=== PATIENT | male | born 1960 | race Caucasian/White ===

== ENCOUNTER 2021-11-27 14:49 | Inpatient (IN) | payer MEDICARE, MEDICAID ==
[~2021-11-27 14:49] MED LIST: MAG HYDROX/AL HYDROX/SIMETH 30 ML CUP PO PRN; MAGNESIUM HYDROXIDE 2,400 MG/10 ML CUP PO PRN
[2021-11-27] MEDS: DIVALPROEX 500 MG TABLET.DR PO SCH ×2 (15:06→21:02)
[2021-11-27] MEDS: GABAPENTIN 300 MG CAP PO SCH ×3 (15:06→21:01)
[2021-11-27] MEDS: haloperidoL 5 MG TAB PO SCH ×2 (15:07→21:00)
--- NOTE | 2021-11-27 18:14 | P.HPMEDMHU ---
History of Present Illness H&P Date: 11/27/21 Patient is a 61-year-old male who is currently house was in the mental health unit. He was transferred here from [facility]. He currently is alert and oriented 3. However he cannot focus on the conversation. He has echolalia, flight of ideas, and experiences grandiose ideas. I'm unable to obtain an appropriate review of systems or history at this point in time. Patient seen and examined at bedside. He does deny any chest pain, shortness breath, nausea. He then goes on to tell me how he was at Dr. and a psychiatrist and describes People's ailments. He also talks about thyroid and heart disease but that denies he has these. He does not smoke diabetes and denies he has t hese. Unable to obtain a full review of systems due to mental health. Vital signs reviewed General: nontoxic, no distress, appears at stated age, disheveled, malodorous Derm: warm, dry Head: atraumatic, normocephalic, symmetric Eyes: EOMI, no lid lag, anicteric sclera, pupils equal round reactive to light ENT: Nose and ears atraumatic, no thrush, no pharyngeal erythema Neck: No thyromegaly, no cervical lymphadenopathy, trachea midline, supple Mouth: no lip lesion, mucus membranes moist Cardiovascular: S1S2 reg, no murmur, positive posterior tibial pulse bilateral, no edema, capillary refill less than 2 seconds Lungs: clear to auscultation bilateral, no rhonchi, no rales, no wheeze, no accessory muscle use Abdominal: soft, nontender to palpation, no guarding, no appreciable organomegaly, normal bowel sounds Ext: no gross muscle atrophy, muscle strength muscle strength 5 out of 5 in all 4 extremities, no contractures Neuro: CN II-XII grossly intact, light touch intact all 4 extremities, finger to nose within normal limits, Psych: Alert, oriented 3, inability to concentrate, echolalia perseveration, ideas of grandiosity Assessment/Plan: Nicotine dependency Cocaine use Alcohol dependency - Advised cessation -We'll start thiamine and folic acid -We will leave alcohol withdrawal protocol up to psychiatry. Psychosis -Your psych management External medication reconciliation reviewed. It is difficult to determine if patient may have a seizure disorder as he takes gabapentin and Depakote at baseline. However these may be due to his mental health disorder and alcohol dependency. Thank you for allowing us to participate in the care of this pleasant patient. Do not hesitate to contact us with questions. Someone can be reached from the [facility] hospitalist group all hours of the day at [phone] or via [employer] Meet[employer]. Past Medical History Past Medical History: No Reported History Past Surgical History: Tonsillectomy Additional Past Surgical History / Comment(s): root canal Smoking Status: Current every day smoker Past Alcohol Use History: Heavy Past Drug Use History: Cocaine - Past Family History Father Family Medical History: Unable to Obtain Medications and Allergies Home Medications Medication Instructions Recorded Confirmed Type Acetaminophen Tab [Tylenol] 650 mg PO Q4HR PRN 11/27/21 11/27/21 History Benztropine Mesylate [Cogentin] 1 mg PO TID 11/27/21 11/27/21 History Divalproex Sodium 1,000 mg PO HS 11/27/21 11/27/21 History Divalproex Sodium 500 mg PO QAM 11/27/21 11/27/21 History Gabapentin 300 mg PO TID 11/27/21 11/27/21 History haloperidoL [Haloperidol] 5 mg PO BID 11/27/21 11/27/21 History traZODone HCL [Desyrel] 50 mg PO HS 11/27/21 11/27/21 History Allergies Allergy/AdvReac Type Severity Reaction Status Date / Time fluphenazine [From Prolixin] Allergy Unknown Verified 11/27/21 01:24 levothyroxine Allergy Unknown Verified 11/27/21 01:24 risperidone [From Risperdal] Allergy Unknown Verified 11/27/21 01:24 sertraline [From Zoloft] Allergy Unknown Verified 11/27/21 01:24 Physical Exam Osteopathic Statement: *. No significant issues noted on an osteopathic structural exam other than those noted in the History and Physical/Consult. Vitals: Vital Signs Temp Pulse Resp BP Pulse Ox 11/27/21 15:28 97.9 F 80 16 137/75 97 Intake and Output 11/27/21 11/27/21 11/27/21 06:59 14:59 22:59 Other: Weight 81 kg Cranial Nerve Examination - Cranial Nerves Cranial Nerve II- Optic: Intact Cranial Nerve III- Oculomotor: Intact Cranial Nerve IV- Trochlear: Intact Cranial Nerve V- Trigeminal: Intact Cranial Nerve - Abducens: Intact Cranial Nerve VII- Facial: Intact Cranial Nerve VIII- Auditory: Intact Cranial Nerve IX- Glossopharyngeal: Intact Cranial Nerve X- Vagus: Intact Cranial Nerve XI- Accessory: Intact Cranial Nerve XII- Hypoglossal: Intact
[2021-11-27] MEDS: traZODone HCL 50 MG TAB PO SCH (21:00)
[2021-11-27] MEDS: LORazepam 2 MG/ML INJ IM PRN (23:53)
[2021-11-27] MEDS: HALOPERIDOL LACTATE 5 MG/ML 1 ML VIAL IM PRN (23:54)
[2021-11-28] MEDS: FOLIC ACID 1 MG TAB PO SCH (09:31)
[2021-11-28] MEDS: THIAMINE 100 MG TAB PO SCH (09:31)
[2021-11-28] MEDS: haloperidoL 5 MG TAB PO SCH ×2 (09:31→22:13)
[2021-11-28] MEDS: GABAPENTIN 300 MG CAP PO SCH ×3 (09:31→22:14)
[2021-11-28] MEDS: DIVALPROEX 500 MG TABLET.DR PO SCH ×2 (09:31→22:13)
--- NOTE | 2021-11-28 14:08 | P.HP ---
Psychiatric H&P - . H&P Date: 11/28/21 History & Physical: Allergies Allergy/AdvReac Type Severity Reaction Status Date / Time fluphenazine From Prolixin Allergy Unknown Verified 11/27/21 01:24 levothyroxine Allergy Unknown Verified 11/27/21 01:24 risperidone From Risperdal Allergy Unknown Verified 11/27/21 01:24 sertraline From Zoloft Allergy Unknown Verified 11/27/21 01:24 Vital Signs Temp 97.9 F 11/27/21 15:28 Pulse 80 11/27/21 15:28 Resp 16 11/27/21 15:28 BP 137/75 11/27/21 15:28 Pulse Ox 97 11/27/21 15:28 FiO2 11/28/21 13:51 IDENTIFYING DATA: Patient is a 61 yo male, lives in residential [place], sister is pat. HPI: Patient presented to the hospital on petition and certificate. Patient was admitted involunatrily. He was a transfer from [facility]. He apparently hasa history of chronic and perisstent mental illness. He was seen today and agreeable to speak with technical publications writer. He was illogical had loose associations. He was also tangential and delusional; about his family and beleives that "they all want me locked up. He spoke about the problems of his sister as pat. He appears to be ditressed today. He has poor insight and judgment. He claims that he wants back his jenniferanship. He admitts to med non compliance for quite some time. denies any depression or anxiety. He was minimizing his symtpoms. Petition states that. Patient denies any suicidal or homicidal ideations intent or plan. At this time patient denies any auditory or visual hallucinations. Patient denies any flight of ideas racing thoughts and increased in goal directed behavior. Patient admits to using cigarettes only no other recreational drugs. PAST PSYCHIATRIC HISTORY: Patient states that he feels he does not have a psychiatric illness. She was previously on Haldol and Depakote. He claims that he has been psychiatrically admitted several times in the past. Patient denies any psychiatric outpatient follow-up. Patient denies any history of suicide attempts in the past. PMH:as per medicine H and P ALLERGIES: as per EMR CHEMICAL DEPENDENCY HISTORY: as per HPI FAMILY PSYCHIATRIC/SUBSTANCE USE HISTORY: unsure SOCIAL HISTORY: Patient was born and raised in [place]. high school diploma. His sister is his gaurdian. He claims that he living in a half way house. He is denying any legal history at this time. Currently unmarried and unemployed. MENTAL STATUS EXAM: General Appearance: Patient appears to be tall, disheveled, stated age is alert, difficult to redirect and rambles. Patient appears to have poor hygiene and grooming. Behavior: Patient is seated without any agitated behavior. Speech: Patient's speech is hyperverbal. Mood/Affect: Patient reports their mood is depressed, affect is congruent and constricted. Suicidality/Homicidality: Patient denies having any homicidal ideation intent o r plan. Denies any suicidal ideations intent or plan Perceptions: Patient denies any visual hallucinations and denies any auditory hallucinations Though content/process: Hyperverbal, tangential/circumstantial. Flight of ideas. Memory and concentration: AOX3, grossly intact for the purposes of this session. Can spell "WORLD" backwards Judgment and insight: poor STRENGTHS/WEAKNESSES: strength is that patient is resilient. Weakness is that patient has poor judgment and is impulsive INTELLECT: average IMPRESSIONS: Schizoaffective disorder, bipolar type Nicotine dependence PLAN: -Patient is admitted under involuntary status to [facility] for stabilization of psychiatric symptoms and safety. Patient has not signed adult voluntary form and medication consent and is placed in patient's chart. A second certification was completed and along with petition will be filed for court. -Medications : Will start patient on Haldol 5 mg twice a day, trazodone 50 mg daily at bedtime, Depakote 500 mg plus 1000 mg daily and at nighttime. -Ativan and Haldol PRN for agitation/aggression -Patient was informed of the risks, benefits and side effects of the medication and patient verbally consented to taking the medications. Patient signed med consent form and was placed in chart. -Internal Medicine consult to perform medical evaluation and physical. -NRT - nicotine patch -SW on board for discharge planning. Encourage patient to participate in groups to work on coping skills. Will await deferral and court date.
[2021-11-28] MEDS: traZODone HCL 50 MG TAB PO SCH (22:13)
[2021-11-29 06:46] VITALS: RESP 18
[2021-11-29] MEDS: THIAMINE 100 MG TAB PO SCH (09:36)
[2021-11-29] MEDS: DIVALPROEX 500 MG TABLET.DR PO SCH ×2 (09:36→21:13)
[2021-11-29] MEDS: FOLIC ACID 1 MG TAB PO SCH (09:36)
[2021-11-29] MEDS: GABAPENTIN 300 MG CAP PO SCH ×3 (09:36→21:14)
[2021-11-29] MEDS: haloperidoL 5 MG TAB PO SCH ×2 (09:36→21:13)
[2021-11-29] MEDS: LORazepam 1 MG TAB PO PRN (11:37)
[2021-11-29] MEDS: haloperidoL 5 MG TAB PO PRN (11:37)
--- NOTE | 2021-11-29 14:01 | P.PN ---
Progress Note - Text Progress Note Date: 11/29/21 Interval History: Patient was seen wandering the hallways and was directable and agreeable to tello valencia with selling underwriter in the office. Patient was more directable today however continues to ramble is tangential and hyperverbal. He just started taking medications last night. He has loose associations and was bizarre and some of the statements that he was making. Difficult to redirect. He apparently almost got into a fight with another patient earlier. He claims that he did not sleep well last night. Continues to have fairly poor insight and judgment. At this time patient denies any suicidal or homical ideations, intent or plan. Patient denies any visual hallucinations. He claims that he is hearing voices however is not able to specify what they're saying to him. Patient denies any side effects from the medications and has been compliant with meds. Mental Status Exam: General Appearance: Patient appears to be tall, disheveled, stated age is alert, difficult to redirect and rambles. Patient appears to have poor hygiene and grooming. Behavior: Patient is seated without any agitated behavior. Difficult to redirect. Speech: Patient's speech is hyperverbal. Mood/Affect: Patient reports their mood is "the same", affect is congruent and constricted. Suicidality/Homicidality: Patient denies having any homicidal ideation intent or plan. Denies any suicidal ideations intent or plan Perceptions: Patient denies any visual hallucinations and admits to auditory hallucinations however is not able to specify what they are. Though content/process: Hyperverbal, tangential/circumstantial. Flight of ideas, improving mildly Memory and concentration: AOX3, grossly intact for the purposes of this session. Judgment and insight: poor IMPRESSIONS: Schizoaffective disorder, bipolar type Nicotine dependence Plan: -Patient continues to meet criteria for inpatient psychiatric admission for symptom stabilization and safety. Patient has not signed adult voluntary form and medication consent and was placed in patient's chart. -Medications: Haldol 5 mg twice a day for psychosis, increase over the weekend as tolerated. Continue Depakote 500 mg every morning +1000 mg daily at bedtime for mood stabilization. Increase trazodone to 150 mg daily at bedtime for sleep. -When necessary Ativan and Haldol for agitation/aggression. -NRT - nicotine patch -SW on board for discharge planning. Encouraged the patient to participate in milieu. Currently awaiting deferral with workers compensation attorney and court date.
[2021-11-29] MEDS: LORazepam 2 MG/ML INJ IM PRN (17:27)
[2021-11-29] MEDS: HALOPERIDOL LACTATE 5 MG/ML 1 ML VIAL IM PRN (17:28)
[2021-11-29] MEDS: traZODone HCL 50 MG TAB PO SCH (21:13)
[2021-11-30] MEDS: haloperidoL 5 MG TAB PO SCH ×2 (09:09→20:06)
[2021-11-30] MEDS: GABAPENTIN 300 MG CAP PO SCH ×3 (09:09→20:06)
[2021-11-30] MEDS: THIAMINE 100 MG TAB PO SCH (09:09)
[2021-11-30] MEDS: DIVALPROEX 500 MG TABLET.DR PO SCH ×2 (09:09→20:06)
[2021-11-30] MEDS: FOLIC ACID 1 MG TAB PO SCH (09:09)
--- NOTE | 2021-11-30 17:00 | P.PN ---
Progress Note - Text Progress Note Date: 11/30/21 Subjective: Patient was seen today as a cross coverage for Dr. Oliveros. The patient was evaluated, chart reviewed, case discussed with the treatment team. The patient presented was very bizarre speech, incoherent, and not able to provide any history because of his psychotic symptoms. The patient was very bizarre with his his speech, with cole salad and nonsensical. As per nursing staff, the patient showed impulsive behavior yesterday that he was unpredictable and to some degree intrusive with annoying behaviors to other patients. Reportedly, the patient was sexually preoccupied. Upon psychiatric evaluation today, patient couldn't provide any information, and was laughing inappropriately. Objective: Vitals has been reviewed. Mental status examination; General Appearance: Patient appears to be tall, disheveled, stated age is alert, difficult to redirect and rambles. Patient appears to have poor hygiene and grooming. Behavior: Patient is seated without any agitated behavior. Difficult to redirect. Speech: Patient's speech is hyper verbal. Mood: Patient reports their mood is "the same" Affect: Increased intensity and incongruent Suicidal/homicidal ideation: Patient denies having any homicidal ideation intent or plan. Denies any suicidal ideation intent or plan Perceptions: Patient denies any visual hallucinations and admits to auditory hallucinations however is not reliable historian. Though content/process: Hyper verbal, tangential/circumstantial. Flight of ideas Memory and concentration: Unable to assess because the patient was not cooperative with evaluation Judgment and insight: poor Assessment: Schizo-affective disorder, bipolar type Nicotine dependence Plan: Continue inpatient level of care due to patient needs further monitoring and stabilization of psychotic and mood instability symptoms Precautions: Continue 15 minutes check for safety. Consider medical consultation if any acute medical issues arise. Provide the patient individual, group therapy, substance use disorder counseling to give better insight and learn coping skills. Medications: Increase Haldol 5 mg daily and 10 mg at bedtime for psychosis Continue Depakote 500 mg every morning +1000 mg daily at bedtime for mood stabilization. Continue trazodone 150 mg daily at bedtime for sleep. When necessary Ativan and Haldol for agitation/aggression. NRT - nicotine patch Continue non-psychiatric medications for medical conditions as recommended by the medical team. Discharge patient to OUTPATIENT services upon a stabilization
[2021-11-30] MEDS: traZODone HCL 50 MG TAB PO SCH (20:06)
[2021-12-01] MEDS: THIAMINE 100 MG TAB PO SCH (08:31)
[2021-12-01] MEDS: DIVALPROEX 500 MG TABLET.DR PO SCH ×2 (08:31→21:31)
[2021-12-01] MEDS: FOLIC ACID 1 MG TAB PO SCH (08:32)
[2021-12-01] MEDS: haloperidoL 5 MG TAB PO SCH ×3 (08:32→21:31)
[2021-12-01] MEDS: GABAPENTIN 300 MG CAP PO SCH ×3 (08:32→21:31)
[2021-12-01] MEDS: haloperidoL 5 MG TAB PO PRN (13:36)
[2021-12-01] MEDS: LORazepam 1 MG TAB PO PRN (13:36)
--- NOTE | 2021-12-01 16:02 | P.PN ---
Progress Note - Text Progress Note Date: 12/01/21 Subjective: Patient was seen today as a cross coverage for Dr. Oliveros. The patient was evaluated, chart reviewed, case discussed with the treatment team. The patient continued to present with bizarre speech, disorganized thoughts and not responding to redirection. Patient still have incoherent speech and he couldn't clearly answer questions. No reports of behavioral problems as per nursing staff and the patient didn't show threatening behaviors toward other peers, and was not intrusive. No report of sleep or appetite problem. Patient continued to take his psychiatric medications. He attended some groups today, and was seen coloring during activity group. Objective: Vitals has been reviewed. Mental status examination; General Appearance: Patient appears to be tall, disheveled, stated age is alert, difficult to redirect and rambles. Patient appears to have poor hygiene and grooming. Behavior: Patient is seated without any agitated behavior. Difficult to redirect. Speech: Patient's speech is hyper verbal. Mood: Patient reports their mood is "the same" Affect: Increased intensity and incongruent Suicidal/homicidal ideation: Patient denies having any homicidal ideation intent or plan. Denies any suicidal ideation intent or plan Perceptions: Patient denies any visual hallucinations and admits to auditory hallucinations however is not reliable historian. Though content/process: Hyper verbal, tangential/circumstantial. Flight of ideas Memory and concentration: Unable to assess because the patient was not cooperative with evaluation Judgment and insight: poor Assessment: Schizo-affective disorder, bipolar type Nicotine dependence Plan: Continue inpatient level of care due to patient needs further monitoring and stabilization of psychotic and mood instability symptoms Precautions: Continue 15 minutes check for safety. Consider medical consultation if any acute medical issues arise. Provide the patient individual, group therapy, substance use disorder counseling to give better insight and learn coping skills. Medications: Continue Haldol 5 mg daily and 10 mg at bedtime for psychosis. The dose was increased yesterday Continue Depakote 500 mg every morning +1000 mg daily at bedtime for mood stabilization. Continue trazodone 150 mg daily at bedtime for sleep. When necessary Ativan and Haldol for agitation/aggression. Continue non-psychiatric medications for medical conditions as recommended by the medical team. Discharge patient to OUTPATIENT services upon a stabilization
[2021-12-01] MEDS: traZODone HCL 50 MG TAB PO SCH (21:31)
[2021-12-02] MEDS: DIVALPROEX 500 MG TABLET.DR PO SCH ×2 (09:21→20:53)
[2021-12-02] MEDS: THIAMINE 100 MG TAB PO SCH (09:21)
[2021-12-02] MEDS: FOLIC ACID 1 MG TAB PO SCH (09:21)
[2021-12-02] MEDS: haloperidoL 5 MG TAB PO SCH ×2 (09:22→20:53)
[2021-12-02] MEDS: GABAPENTIN 300 MG CAP PO SCH ×3 (09:22→20:54)
--- NOTE | 2021-12-02 13:12 | P.PN ---
Progress Note - Text Progress Note Date: 12/02/21 Interval History: Patient was seen in his room today and agreeable speech regular. Patient appe ars to be mildly more directable however continues to mention inappropriate comments and bizarre statements during conversation. He continues to have fairly poor insight and judgment. He was not responding to internal stimuli today. Not endorsing any delusions or grandiosity. He states that he is sleeping fairly at nighttime. He did not mention whether he is going to groups or not. Denies any depression or anxiety today. At this time patient denies any suicidal or homical ideations, intent or plan. Patient denies any auditory, visual hallucinations and denies any paranoia or delusions. Patient denies any side effects from the medications and has been compliant with meds. Mental Status Exam: General Appearance: Patient appears to be tall, disheveled, stated age is alert, difficult to redirect and rambles. Patient appears to have poor hygiene and grooming. Behavior: Patient is seated without any agitated behavior. Speech: Patient's speech is less hyperverbal. Mood/Affect: Patient reports their mood is "fine", affect is congruent and constricted. Suicidality/Homicidality: Patient denies having any homicidal ideation intent or plan. Denies any suicidal ideations intent or plan Perceptions: Patient denies any visual hallucinations and denies any auditory hallucinations Though content/process: Hyperverbal, tangential/circumstantial. Bizarre comments. Memory and concentration: AOX3, grossly intact for the purposes of this session Judgment and insight: Chronically poor IMPRESSIONS: Schizoaffective disorder, bipolar type Nicotine dependence Plan: -Patient continues to meet criteria for inpatient psychiatric admission for symptom stabilization and safety. Patient has not signed adult voluntary form and medication consent and was placed in patient's chart. -Medications: Increase Haldol to 10 mg twice a day for psychosis. Trazodone 150 mg daily at bedtime for sleep, but code 500 mg daily +1000 mg daily at bedtime for mood stabilization. -When necessary Ativan and Haldol for agitation/aggression. -NRT - nicotine patch -SW on board for discharge planning. Encouraged the patient to participate in milieu. Patient did not defer and will await court hearing date on 12/05.
[2021-12-02] MEDS: traZODone HCL 50 MG TAB PO SCH (20:53)
[2021-12-03] MEDS: THIAMINE 100 MG TAB PO SCH (10:00)
[2021-12-03] MEDS: FOLIC ACID 1 MG TAB PO SCH (10:00)
[2021-12-03] MEDS: GABAPENTIN 300 MG CAP PO SCH ×3 (10:00→22:05)
[2021-12-03] MEDS: haloperidoL 5 MG TAB PO SCH ×2 (10:00→22:05)
[2021-12-03] MEDS: DIVALPROEX 500 MG TABLET.DR PO SCH ×2 (10:00→22:05)
--- NOTE | 2021-12-03 11:06 | P.PN ---
Progress Note - Text Progress Note Date: 12/03/21 Interval History: Patient was seen in his room today and was approached by [employer]. Patient appea red to be speaking to himself and looking at the window. Patient appeared to have a disheveled appearance today. He turned the ad copy writer and asked "what the fuck do you want?" In a threatening manner and states that "I don't want to talk to you get out of my room". He proceeded to walk toward the ad copy writer in a threatening manner. He refused to answer any other questions and was bizarre and rambling. He was responding to internal stimuli. Mental Status Exam: General Appearance: Patient appears to be tall, disheveled, stated age is alert, difficult to redirect and rambles. Patient appears to have poor hygiene and grooming. Behavior: Patient is standing, near his window, responding to internal stimuli. Speech: Patient's speech is hyperverbal. Mood/Affect: Unable to assess Suicidality/Homicidality: Unable to assess Perceptions: Unable to assess Though content/process: Hyperverbal, tangential/circumstantial. Bizarre comments. Demanding. Memory and concentration: Unable to assess Judgment and insight: Chronically poor IMPRESSIONS: Schizoaffective disorder, bipolar type Nicotine dependence Plan: -Patient continues to meet criteria for inpatient psychiatric admission for symptom stabilization and safety. Patient has not signed adult voluntary form and medication consent and was placed in patient's chart. -Medications: Haldol to 10 mg twice a day for psychosis. Trazodone 150 mg daily at bedtime for sleep, depakote 500 mg daily +1000 mg daily at bedtime for mood stabilization. -When necessary Ativan and Haldol for agitation/aggression. -NRT - nicotine patch -SW on board for discharge planning. Encouraged the patient to participate in milieu. Patient did not defer and will await court hearing date on 12/05.
[2021-12-03] MEDS: traZODone HCL 50 MG TAB PO SCH (22:05)
[2021-12-04] MEDS: THIAMINE 100 MG TAB PO SCH (07:59)
[2021-12-04] MEDS: DIVALPROEX 500 MG TABLET.DR PO SCH ×2 (07:59→19:52)
[2021-12-04] MEDS: haloperidoL 5 MG TAB PO SCH ×2 (07:59→19:52)
[2021-12-04] MEDS: FOLIC ACID 1 MG TAB PO SCH (07:59)
[2021-12-04] MEDS: GABAPENTIN 300 MG CAP PO SCH ×3 (07:59→19:52)
--- NOTE | 2021-12-04 11:47 | P.PN ---
Progress Note - Text Progress Note Date: 12/04/21 Interval History: Patient was seen in his room today responding to internal stimuli. Patient was conversing to himself and laughing several times to himself as well. She was agreeable to speak to the inspector automatic typewriter in the hallway today and appeared to be somewhat irritable and aggressive. He was also hostile during the interaction and was difficult to redirect. He made some bizarre comments and continues to respond to internal stimuli. He denied any overnight complaints and ended the interview early. He got upset when inspector automatic typewriter asked him about suicidal and homicidal ideations. He is currently denying them at this time. Denying any auditory or visual hallucinations. Mental Status Exam: General Appearance: Patient appears to be tall, disheveled, stated age is alert, difficult to redirect and rambles. Patient appears to have poor hygiene and grooming. Behavior: Patient is standing, near his window, responding to internal stimuli. Speech: Patient's speech is hyperverbal. Laughing inappropriately. Mood/Affect: Unable to assess Suicidality/Homicidality: Unable to assess Perceptions: Unable to assess Though content/process: Hyperverbal, tangential/circumstantial. Bizarre comments. Demanding. Hostile. Memory and concentration: Unable to assess Judgment and insight: Chronically poor IMPRESSIONS: Schizoaffective disorder, bipolar type Nicotine dependence Plan: -Patient continues to meet criteria for inpatient psychiatric admission for symptom stabilization and safety. Patient has not signed adult voluntary form and medication consent and was placed in patient's chart. -Medications: increase Haldol to 15 mg twice a day for psychosis. Trazodone 150 mg daily at bedtime for sleep, depakote 500 mg daily +1000 mg daily at bedtime for mood stabilization. deapkote level tomorrow morning. -When necessary Ativan and Haldol for agitation/aggression. -NRT - nicotine patch -SW on board for discharge planning. Encouraged the patient to participate in milieu. Patient did not defer and will await court hearing date on 12/05.
[2021-12-04] MEDS: ACETAMINOPHEN TAB 325 MG TAB PO PRN (15:53)
[2021-12-04] MEDS: traZODone HCL 50 MG TAB PO SCH (19:52)
[2021-12-05] MEDS: ACETAMINOPHEN TAB 325 MG TAB PO PRN (04:39)
[2021-12-05] MEDS: THIAMINE 100 MG TAB PO SCH (08:18)
[2021-12-05] MEDS: FOLIC ACID 1 MG TAB PO SCH (08:18)
[2021-12-05] MEDS: GABAPENTIN 300 MG CAP PO SCH ×3 (08:18→19:41)
[2021-12-05] MEDS: DIVALPROEX 500 MG TABLET.DR PO SCH ×2 (08:18→19:41)
[2021-12-05] MEDS: haloperidoL 5 MG TAB PO SCH ×2 (08:18→19:41)
--- NOTE | 2021-12-05 18:36 | P.PN ---
Progress Note - Text Progress Note Date: 12/05/21 Interval History: Patient was seen in his room with a nurse present due to his history of sexually inappropriate behaviors. He was uncooperative with assessment, remained laying in bed and facing away from the treatment team. He declined to answer any questions and stated "I'm not doing squat." He was observed earlier pacing the hallways, disheveled, talking to himself, responding to internal stimuli. He has been noncompliant with his medications. Evaluation was ended to avoid agitating patient. Mental Status Exam: General Appearance: Patient appears disheveled. Orientation: Alert, unable to assess orientation due to lack of cooperation. Behavior: Patient is laying in bed facing away from treatment team, poor eye contact. Speech: Patient's speech is fluent and nonpressured. Mood/Affect: Mood is irritable, affect is congruent (seen earlier walking the hallways) Suicidality/Homicidality: unable to assess orientation due to lack of cooperation. Perceptions: Appears to be attending to internal stimuli. Though content/process: unable to assess orientation due to lack of cooperation. Memory and concentration: unable to assess orientation due to lack of cooperation. Judgment and insight: poor Assessment Schizoaffective disorder, bipolar type Tobacco use disorder Plan: -Patient continues to meet criteria for inpatient psychiatric admission for symptom stabilization and safety. -Medications: Continue current medications, encourage compliance with medications and treatment. -When necessary Ativan and Haldol for agitation/aggression. -NRT - nicotine patch -SW on board for discharge planning. Encouraged the patient to participate in milieu. Court hearing scheduled for 12/05.
[2021-12-05] MEDS: traZODone HCL 50 MG TAB PO SCH (19:41)
[2021-12-06] MEDS: DIVALPROEX 500 MG TABLET.DR PO SCH (08:52)
[2021-12-06] MEDS: FOLIC ACID 1 MG TAB PO SCH (08:52)
[2021-12-06] MEDS: THIAMINE 100 MG TAB PO SCH (08:52)
[2021-12-06] MEDS: GABAPENTIN 300 MG CAP PO SCH ×3 (08:53→20:46)
[2021-12-06] MEDS: haloperidoL 5 MG TAB PO SCH (08:53)
[2021-12-06] MEDS: haloperidoL 5 MG TAB PO PRN (08:55)
--- NOTE | 2021-12-06 09:01 | P.PN ---
Progress Note - Text Progress Note Date: 12/06/21 Interval History: Patient was seen wandering the hallways today and was responding to internal s timuli. Patient was laughing and talking to himself. He was agreeable to speak to bid writer briefly however was inappropriate and bizarre. He asked bid writer a question "what's the gonzalez of chicken and eggs" and was fairly fixated on this question during the interaction. He did not answer questions appropriately and was equally redirected. He appeared to be somewhat irritable and impulsive. He claims that he does not want to take the medications any longer. State Inspector attempted to speak with patient about the court order however patient did not acknowledge it. He was unable to answer whether he is hearing voices or not. Mental Status Exam: General Appearance: Patient appears to be tall, disheveled, stated age is alert, difficult to redirect and rambles. Patient appears to have poor hygiene and grooming. Behavior: Patient is standing, near his window, responding to internal stimuli. Speech: Patient's speech is hyperverbal. Laughing inappropriately. Mood/Affect: Unable to assess Suicidality/Homicidality: Unable to assess Perceptions: Unable to assess Though content/process: Hyperverbal, tangential/circumstantial. Bizarre comments. Demanding. Memory and concentration: Unable to assess Judgment and insight: Chronically poor IMPRESSIONS: Schizoaffective disorder, bipolar type Nicotine dependence Plan: -Patient continues to meet criteria for inpatient psychiatric admission for symptom stabilization and safety. Patient has not signed adult voluntary form and medication consent and was placed in patient's chart. -Medications: Change Depakote by mouth 2 Depakene syrup 500 mg twice a day for mood stabilization. Switched Haldol to clozapine as patient was not improving on haloperidol.*Clozapine 25 mg twice a day for psychosis. Trazodone 150 mg daily at bedtime for sleep. Haldol IM as back up if patient refuses clozapine. -When necessary Ativan and Haldol for agitation/aggression. -NRT - nicotine patch -SW on board for discharge planning. Encouraged the patient to participate in milieu. Patient is court ordered since 12/05.
[2021-12-06 11:21] LABS: Basophils % (A) 1 %; Eosinophils # (A) 0.1 k/uL (0-0.7); Eosinophils % (A) 3 %; HCT 46.6 % (39.0-53.0); HGB 15.6 gm/dL (13.0-17.5); Lymphocytes # (A) 1.4 k/uL (1.0-4.8); Lymphocytes % (A) 30 %; MCH 31.5 pg (25.0-35.0); MCHC 33.4 g/dL (31.0-37.0); MCV 94.4 fL (80.0-100.0); Mean Platelet Volume 7.2; Monocytes # (A) 0.2 k/uL (0-1.0); Monocytes % (A) 5 %; Neutrophils # (A) 2.7 k/uL (1.3-7.7); Neutrophils % (A) 58 %; Platelet Count 256 k/uL (150-450); RBC 4.94 m/uL (4.30-5.90); RDW 12.8 % (11.5-15.5); WBC 4.7 k/uL (3.8-10.6)
[2021-12-06] MEDS: VALPROIC ACID ORAL SOLN 250 MG/5 ML CUP PO SCH ×2 (14:30→21:11)
[2021-12-06] MEDS: cloZAPine 25 MG TAB PO SCH ×2 (14:56→21:19)
[2021-12-06 15:21] VITALS: BMI 28.0
[2021-12-06] MEDS: traZODone HCL 50 MG TAB PO SCH (20:46)
[2021-12-07] MEDS: THIAMINE 100 MG TAB PO SCH (08:39)
[2021-12-07] MEDS: FOLIC ACID 1 MG TAB PO SCH (08:39)
[2021-12-07] MEDS: cloZAPine 25 MG TAB PO SCH ×2 (08:39→20:44)
[2021-12-07] MEDS: GABAPENTIN 300 MG CAP PO SCH ×3 (08:39→20:43)
[2021-12-07] MEDS: HALOPERIDOL LACTATE 5 MG/ML 1 ML VIAL IM PRN ×2 (08:45→20:50)
[2021-12-07] MEDS: LORazepam 2 MG/ML INJ IM PRN (08:46)
[2021-12-07] MEDS: VALPROIC ACID ORAL SOLN 250 MG/5 ML CUP PO SCH ×2 (10:32→20:44)
[2021-12-07] MEDS: traZODone HCL 50 MG TAB PO SCH (20:44)
--- NOTE | 2021-12-07 22:13 | P.PN ---
Progress Note - Text Progress Note Date: 12/07/21 Interval History: Interval History: Patient was seen in his room with a nurse present due to his history of sexually inappropriate behaviors. He was uncooperative with assessment again today, remained laying in bed and facing away from the treatment team. He declined to answer any questions, would mumble incoherently and passed gas. He was observed earlier pacing the hallways, disheveled, talking to himself, had straw wrappers in his nose while walking in the hallways responding to internal stimuli. He has been noncompliant with his medications, refused his Clozapine this evening and received Haldol 5 mg IM due to refusal of Clozapine since he is court ordered. Mental Status Exam: General Appearance: Patient appears disheveled. Orientation: Alert, unable to assess orientation due to lack of cooperation. Behavior: Patient is laying in bed facing away from treatment team, poor eye contact. Speech: Patient's speech is fluent and nonpressured, rambling.. Mood/Affect: Mood is irritable, affect is congruent Suicidality/Homicidality: unable to assess orientation due to lack of cooperation. Perceptions: Appears to be attending to internal stimuli. Though content/process: unable to assess orientation due to lack of cooperation. Memory and concentration: unable to assess orientation due to lack of cooperation. Judgment and insight: poor Assessment Schizoaffective disorder, bipolar type Tobacco use disorder Plan: -Patient continues to meet criteria for inpatient psychiatric admission for symptom stabilization and safety. -Medications: Continue Depakene syrup 500 mg twice a day for mood stabilization. Increase Clozapine to 50 mg twice a day for psychosis. Haldol IM as back up if patient refuses Clozapine. Continue Trazodone 150 mg daily at bedtime for sleep. -When necessary Ativan and Haldol for agitation/aggression. -NRT - nicotine patch -SW on board for discharge planning. Encouraged the patient to participate in milieu. Patient is court ordered since 12/05.
[2021-12-08] MEDS: GABAPENTIN 300 MG CAP PO SCH ×3 (09:06→20:35)
[2021-12-08] MEDS: FOLIC ACID 1 MG TAB PO SCH (09:06)
[2021-12-08] MEDS: cloZAPine 25 MG TAB PO SCH ×2 (09:06→20:35)
[2021-12-08] MEDS: THIAMINE 100 MG TAB PO SCH (09:06)
[2021-12-08] MEDS: VALPROIC ACID ORAL SOLN 250 MG/5 ML CUP PO SCH ×2 (09:06→20:37)
[2021-12-08] MEDS: HALOPERIDOL LACTATE 5 MG/ML 1 ML VIAL IM PRN (09:08)
--- NOTE | 2021-12-08 16:19 | P.PN ---
Progress Note - Text Progress Note Date: 12/08/21 Interval History: Patient was seen in his room with a nurse present due to his history of sexually inappropriate behaviors. He was found cleaning his room this afternoon, was making his bed and throwing out some trash. He was uncooperative with assessment again today and gave us the silent treatment today. He declined to answer any questions, and walked around the room cleaning and ignored the questions asked. He has been noncompliant with his medications. He has been refusing his oral Clozapine; and yesterday and found cheeking his oral Clozapine and oral Neurontin, so he received IM Haldol for refusal of oral Clozapine yesterday and this morning since he is court ordered. He appears to be slightly improving with the IM Haldol injections. Mental Status Exam: General Appearance: Patient appears disheveled, dressed in hospital gown. Orientation: Alert, unable to assess orientation due to lack of cooperation. Behavior: Patient walking around his room and cleaning it, appears to intentionally ignore the treatment team, has poor eye contact. Speech: Patient does not speak to us on assessment today. Mood/Affect: Mood appears upset/annoyed, affect is congruent Suicidality/Homicidality: Unable to assess orientation due to lack of cooperation. Perceptions: Appears to be attending to internal stimuli. Though content/process: Unable to assess orientation due to lack of cooperation. Memory and concentration: Unable to assess orientation due to lack of coop eration. Judgment and insight: poor Assessment Schizoaffective disorder, bipolar type Tobacco use disorder Plan: -Patient continues to meet criteria for inpatient psychiatric admission for symptom stabilization and safety. -Medications: Continue Depakene syrup 500 mg twice a day for mood stabilization. Continue Clozapine 50 mg twice a day for psychosis. Haldol IM as back up if patient refuses Clozapine. Continue Trazodone 150 mg daily at bedtime for sleep. -When necessary Ativan and Haldol for agitation/aggression. -NRT - nicotine patch -SW on board for discharge planning. Encouraged the patient to participate in milieu. Patient is court ordered since 12/05.
[2021-12-08] MEDS: traZODone HCL 50 MG TAB PO SCH (20:35)
[2021-12-09] MEDS: FOLIC ACID 1 MG TAB PO SCH (08:34)
[2021-12-09] MEDS: VALPROIC ACID ORAL SOLN 250 MG/5 ML CUP PO SCH ×3 (08:35→21:44)
[2021-12-09] MEDS: THIAMINE 100 MG TAB PO SCH (08:35)
[2021-12-09] MEDS: GABAPENTIN 300 MG CAP PO SCH ×3 (08:43→21:37)
[2021-12-09] MEDS: cloZAPine 25 MG TAB PO SCH (10:03)
[2021-12-09] MEDS: HALOPERIDOL LACTATE 5 MG/ML 1 ML VIAL IM PRN ×3 (10:07→21:46)
--- NOTE | 2021-12-09 11:11 | P.PN ---
Progress Note - Text Progress Note Date: 12/09/21 Interval History: Patient was seen sitting in a group today and was agreeable to speak to typewriter assembler. Patient appears to be mildly more directable during conversation and mildly more clear in his thought process. He continues to focus on his medications and was asking typewriter assembler "why did you switched my meds". He appeared to be fairly upset that he is now on liquid medication and was asked by cheeking and patient got verbally aggressive with typewriter assembler. He continues to laugh inappropriately and make inappropriate comments. He is bizarre. Responding to internal stimuli. He claimed that he slept fairly last night. Denies any auditory or visual hallucinations today. Denies any suicidal or homicidal ideations intent or plan. Mental Status Exam: General Appearance: Patient appears to be tall, disheveled, stated age is alert, difficult to redirect and rambles. Patient appears to have poor hygiene and grooming. Behavior: Patient is standing, near his window, responding to internal stimuli. Speech: Patient's speech is hyperverbal. Laughing inappropriately. Mood/Affect: Unable to assess Suicidality/Homicidality: Unable to assess Perceptions: Unable to assess Though content/process: Hyperverbal, tangential/circumstantial. Bizarre comments. Demanding. Memory and concentration: Unable to assess Judgment and insight: Chronically poor IMPRESSIONS: Schizoaffective disorder, bipolar type Nicotine dependence Plan: -Patient continues to meet criteria for inpatient psychiatric admission for symptom stabilization and safety. Patient has not signed adult voluntary form and medication consent and was placed in patient's chart. -Medications: Depakene syrup 500 mg twice a day for mood stabilization. Switched from clozapine to Haldol liquid as patient was likely cheeking as he was caught doing this earlier. Start Haldol liquid 5 mg bid for psychosis. Trazodone 150 mg daily at bedtime for sleep. Haldol IM as back up if patient refuses po -When necessary Ativan and Haldol for agitation/aggression. -NRT - nicotine patch -SW on board for discharge planning. Encouraged the patient to participate in milieu. Patient is court ordered since 12/05.
[2021-12-09] MEDS: HALOPERIDOL ORAL SOLN 10 MG/5 ML CUP PO SCH ×3 (11:43→21:44)
[2021-12-09] MEDS: LORazepam 2 MG/ML INJ IM PRN (15:55)
[2021-12-09] MEDS: traZODone HCL 50 MG TAB PO SCH (21:37)
[2021-12-10] MEDS: ACETAMINOPHEN TAB 325 MG TAB PO PRN (06:20)
[2021-12-10] MEDS: HALOPERIDOL LACTATE 5 MG/ML 1 ML VIAL IM PRN ×2 (10:32→20:52)
[2021-12-10] MEDS: GABAPENTIN 300 MG CAP PO SCH ×4 (10:36→20:48)
[2021-12-10] MEDS: FOLIC ACID 1 MG TAB PO SCH (10:36)
[2021-12-10] MEDS: THIAMINE 100 MG TAB PO SCH (10:36)
[2021-12-10] MEDS: HALOPERIDOL ORAL SOLN 10 MG/5 ML CUP PO SCH ×3 (10:36→20:49)
[2021-12-10] MEDS: VALPROIC ACID ORAL SOLN 250 MG/5 ML CUP PO SCH ×3 (10:37→20:50)
--- NOTE | 2021-12-10 15:33 | P.PN ---
Progress Note - Text Progress Note Date: 12/10/21 Interval History: Patient was seen sitting on his bed today and was agreeable to speak to leader writer. Patient was somewhat irritable however be improving in terms of his affect and also his distractibility. He followed some commands today. He appeared to be mildly less bizarre today and was mildly less laughing inappropriately. He did not appear to be talking or responding to internal stimuli. He states that "I'm having a headache" and was requesting Excedrin. He continues to have very poor insight and judgment and has been refusing the liquid medication and receiving haloperidol injections. He became somewhat argumentative and visibly upset when leader writer began asking him about hallucinations. He is denying any auditory or visual hallucinations today. He claimed that he slept fairly last night. Denies any suicidal or homicidal ideations intent or plan. Mental Status Exam: General Appearance: Patient appears to be tall, disheveled, stated age is alert, difficult to redirect and rambles. Patient appears to have improving hygiene and grooming. Behavior: Patient is sitting on his bed, responding to internal stimuli, improving mildly. Speech: Patient's speech is hyperverbal. Laughing inappropriately. Mood/Affect: patient claims that his mood is "fine", affect is congruent and constricted. Suicidality/Homicidality: denies Perceptions: denies Though content/process: Hyperverbal, tangential/circumstantial. Bizarre comments. improing midlly Memory and concentration: Unable to assess Judgment and insight: Chronically poor, improvbing mildly IMPRESSIONS: Schizoaffective disorder, bipolar type Nicotine dependence Plan: -Patient continues to meet criteria for inpatient psychiatric admission for symptom stabilization and safety. Patient has not signed adult voluntary form and medication consent and was placed in patient's chart. -Medications: Depakene syrup 500 mg twice a day for mood stabilization. increase Haldol liquid 7.5 mg bid for psychosis. Trazodone 150 mg daily at bedtime for sleep. Haldol IM as back up if patient refuses po -When necessary Ativan and Haldol for agitation/aggression. -NRT - nicotine patch -SW on board for discharge planning. Encouraged the patient to participate in milieu. Patient is court ordered since 12/05.
[2021-12-10] MEDS: traZODone HCL 50 MG TAB PO SCH ×2 (20:20→20:49)
[2021-12-10] MEDS: LORazepam 2 MG/ML INJ IM PRN (20:52)
[2021-12-11 08:06] LABS: Basophils % (A) 1 %; Eosinophils # (A) 0.3 k/uL (0-0.7); Eosinophils % (A) 8 %; HCT 45.4 % (39.0-53.0); HGB 15.1 gm/dL (13.0-17.5); Lymphocytes # (A) 1.1 k/uL (1.0-4.8); Lymphocytes % (A) 29 %; MCH 30.7 pg (25.0-35.0); MCHC 33.3 g/dL (31.0-37.0); MCV 92.1 fL (80.0-100.0); Mean Platelet Volume 7.2; Monocytes # (A) 0.3 k/uL (0-1.0); Monocytes % (A) 7 %; Neutrophils % (A) 54 %; Platelet Count 209 k/uL (150-450); RBC 4.93 m/uL (4.30-5.90); RDW 12.1 % (11.5-15.5); WBC 3.8 k/uL (3.8-10.6)
[2021-12-11] MEDS: FOLIC ACID 1 MG TAB PO SCH (09:18)
[2021-12-11] MEDS: GABAPENTIN 300 MG CAP PO SCH ×4 (09:19→21:37)
[2021-12-11] MEDS: THIAMINE 100 MG TAB PO SCH (09:19)
[2021-12-11] MEDS: VALPROIC ACID ORAL SOLN 250 MG/5 ML CUP PO SCH ×3 (09:19→21:36)
[2021-12-11] MEDS: HALOPERIDOL ORAL SOLN 10 MG/5 ML CUP PO SCH ×3 (09:19→21:36)
[2021-12-11] MEDS: HALOPERIDOL LACTATE 5 MG/ML 1 ML VIAL IM PRN ×2 (09:33→20:44)
--- NOTE | 2021-12-11 11:48 | P.PN ---
Progress Note - Text Progress Note Date: 12/11/21 (\\) Interval History: Patient was seen laying on his bed this morning and was turned away from racebook writer. Patient was mumbling at times and states that he feels "tired". He appears to be not responding to internal stimuli today and was attending to interact with racebook writer and answer questions as best as he could. He continues to make some bizarre comments and states that he does not want to take the liquid medication and would rather take the shots. He is denying any depression or anxiety today. He did not answer any questions regarding hallucinations or with regards to his sleep. Denies any suicidal or homicidal ideations intent or plan. Patient was somewhat lethargic and did not want to speak to racebook writer. He received Haldol injection this morning. Mental Status Exam: General Appearance: Patient appears to be tall, disheveled, stated age is lethargic today, and cooperative. Patient appears to have improving hygiene and grooming. Behavior: Patient is laying on his bed, not responding to internal stimuli Speech: Patient's speech is improving, more fluent today. Mood/Affect: patient claims that his mood is "ok", affect is congruent and constricted. Suicidality/Homicidality: denies Perceptions: Unable to assess Though content/process: tangential/circumstantial. Bizarre comments. improving midlly Memory and concentration: Unable to assess Judgment and insight: Chronically poor, improving mildly IMPRESSIONS: Schizoaffective disorder, bipolar type Nicotine dependence Plan: -Patient continues to meet criteria for inpatient psychiatric admission for symptom stabilization and safety. Patient has not signed adult voluntary form and medication consent and was placed in patient's chart. -Medications: Depakene syrup 500 mg twice a day for mood stabilization. Haldol liquid 7.5 mg bid for psychosis. Trazodone 150 mg daily at bedtime for sleep. Haldol IM as back up if patient refuses po. Will give Haldol D 100 mg IM today. -When necessary Ativan and Haldol for agitation/aggression. -NRT - nicotine patch -SW on board for discharge planning. Encouraged the patient to participate in milieu. Patient is court ordered since 12/05.
[2021-12-11] MEDS ORDERED: HALOPERIDOL DECANOATE 100 MG/ML 1 ML VIAL IM ONE (14:00)
[2021-12-11] MEDS: traZODone HCL 50 MG TAB PO SCH ×2 (20:23→21:36)
[2021-12-11] MEDS: BENZTROPINE MESYLATE 1 MG TAB PO PRN (22:07)
[2021-12-12] MEDS: VALPROIC ACID ORAL SOLN 250 MG/5 ML CUP PO SCH ×2 (09:07→21:35)
[2021-12-12] MEDS: FOLIC ACID 1 MG TAB PO SCH (09:07)
[2021-12-12] MEDS: GABAPENTIN 300 MG CAP PO SCH ×3 (09:07→21:35)
[2021-12-12] MEDS: THIAMINE 100 MG TAB PO SCH (09:07)
[2021-12-12] MEDS: HALOPERIDOL ORAL SOLN 10 MG/5 ML CUP PO SCH ×2 (09:07→21:35)
[2021-12-12] MEDS: HALOPERIDOL LACTATE 5 MG/ML 1 ML VIAL IM PRN ×2 (09:11→21:12)
[2021-12-12] MEDS: BENZTROPINE MESYLATE 1 MG TAB PO PRN ×2 (09:19→21:12)
--- NOTE | 2021-12-12 13:18 | P.PN ---
Progress Note - Text Progress Note Date: 12/12/21 Interval History: Patient was seen laying on his bed this morning and was turned away from race and sports book writer. Patient was initially agreeable to speak to race and sports book writer however was mumbling answers. He appeared to be mildly more directable today. He claims that he is feeling "fine" and was not very responsive to race and sports book writer's questions. He rambles at times and was somewhat illogical. Not responding to internal stimuli today. He continues to be upset with race and sports book writer for starting him on medications and continues to receive injections. He received Haldol D yesterday. Denies any suicidal or homicidal ideations intent or plan. Patient was somewhat lethargic and did not want to speak to race and sports book writer and told race and sports book writer to "get the hell out of here". Mental Status Exam: General Appearance: Patient appears to be tall, disheveled, stated age is lethargic today, and cooperative. Patient appears to have improving hygiene and grooming Behavior: Patient is laying on his bed, not responding to internal stimuli Speech: Patient's speech is improving, more fluent today. Mood/Affect: patient claims that his mood is "ok", affect is congruent and constricted. Suicidality/Homicidality: denies Perceptions: Unable to assess Though content/process: tangential/circumstantial. Bizarre comments. improving midlly Memory and concentration: Unable to assess Judgment and insight: Chronically poor, improving mildly IMPRESSIONS: Schizoaffective disorder, bipolar type Nicotine dependence Plan: -Patient continues to meet criteria for inpatient psychiatric admission for symptom stabilization and safety. Patient has not signed adult voluntary form and medication consent and was placed in patient's chart. -Medications: Depakene syrup 500 mg twice a day for mood stabilization. Haldol liquid 7.5 mg bid for psychosis. Trazodone 150 mg daily at bedtime for sleep. Haldol IM as back up if patient refuses po. given Haldol D 100 mg IM on 12/11 and will be due for a second 100 mg IM dose tomorrow. -When necessary Ativan and Haldol for agitation/aggression. -NRT - nicotine patch -SW on board for discharge planning. Encouraged the patient to participate in milieu. Patient is court ordered since 12/05.
[2021-12-12] MEDS: ACETAMINOPHEN TAB 325 MG TAB PO PRN (18:29)
[2021-12-12] MEDS: traZODone HCL 50 MG TAB PO SCH (21:35)
[2021-12-13] MEDS: FOLIC ACID 1 MG TAB PO SCH (09:06)
[2021-12-13] MEDS: THIAMINE 100 MG TAB PO SCH (09:06)
[2021-12-13] MEDS: HALOPERIDOL ORAL SOLN 10 MG/5 ML CUP PO SCH ×2 (09:06→20:55)
[2021-12-13] MEDS: VALPROIC ACID ORAL SOLN 250 MG/5 ML CUP PO SCH ×2 (09:06→20:55)
[2021-12-13] MEDS: GABAPENTIN 300 MG CAP PO SCH ×3 (09:06→20:55)
[2021-12-13] MEDS: BENZTROPINE 2 MG/2 ML AMP IM PRN (09:10)
[2021-12-13] MEDS: HALOPERIDOL LACTATE 5 MG/ML 1 ML VIAL IM PRN ×2 (09:10→20:58)
--- NOTE | 2021-12-13 11:29 | P.PN ---
Progress Note - Text Progress Note Date: 12/13/21 Interval History: Patient was seen earlier sitting in on group and attending to participate. Prashant garza was later seen by contract technical writer wandering the hallways and was agreeable to speak to contract technical writer briefly. Patient appeared to be mumbling less and appeared to have mild improvement in his thought process. Continues to be tangential/circumstantial at times. He made some bizarre comments however this has been improving significantly. He is not responding to internal stimuli today. We spoke about possible discharge on Thursday. He has about his medications and like he needs injections. Patient will be due for Haldol D1 100 mg IM today. Denies any suicidal or homicidal ideations intent or plan. Patient is denying any auditory or visual hallucinations today. Denying any suicidal or homicidal ideations intent or plan. Mental Status Exam: General Appearance: Patient appears to be tall, disheveled, stated age is lethargic today, and cooperative. Patient appears to have improving hygiene and grooming Behavior: Patient is laying on his bed, not responding to internal stimuli Speech: Patient's speech is improving, more fluent today. Mood/Affect: patient claims that his mood is "ok", affect is congruent and constricted. Suicidality/Homicidality: denies Perceptions: Denies any hallucinations. Though content/process: tangential/circumstantial. Bizarre comments. improving midlly. Rambling. Memory and concentration: Unable to assess Judgment and insight: Chronically poor, improving mildly IMPRESSIONS: Schizoaffective disorder, bipolar type Nicotine dependence Plan: -Patient continues to meet criteria for inpatient psychiatric admission for symptom stabilization and safety. Patient has not signed adult voluntary form and medication consent and was placed in patient's chart. -Medications: Depakene syrup 500 mg twice a day for mood stabilization. Haldol liquid 5 mg bid for psychosis. Trazodone 150 mg daily at bedtime for sleep. Haldol IM as back up if patient refuses po. given Haldol D 100 mg IM on 12/11 and will be due for a second 100 mg IM dose today. Would recommend that patient receive 200 mg IM Haldol Dec [id number] upon discharge. -When necessary Ativan and Haldol for agitation/aggression. -NRT - nicotine patch -SW on board for discharge planning. Encouraged the patient to participate in milieu. Patient is court ordered since 12/05. Will aim for discharge back home thursday with [facility] and [facility] team follow up.
[2021-12-13] MEDS ORDERED: HALOPERIDOL DECANOATE 100 MG/ML 1 ML VIAL IM ONE (16:00)
[2021-12-13] MEDS: traZODone HCL 50 MG TAB PO SCH (20:55)
[2021-12-13] MEDS: BENZTROPINE MESYLATE 1 MG TAB PO PRN (20:58)
[2021-12-14] MEDS: VALPROIC ACID ORAL SOLN 250 MG/5 ML CUP PO SCH ×2 (08:29→20:56)
[2021-12-14] MEDS: THIAMINE 100 MG TAB PO SCH (08:29)
[2021-12-14] MEDS: FOLIC ACID 1 MG TAB PO SCH (08:29)
[2021-12-14] MEDS: HALOPERIDOL ORAL SOLN 10 MG/5 ML CUP PO SCH ×2 (08:29→20:56)
[2021-12-14] MEDS: GABAPENTIN 300 MG CAP PO SCH ×3 (08:29→20:56)
[2021-12-14] MEDS: BENZTROPINE 2 MG/2 ML AMP IM PRN (09:03)
[2021-12-14] MEDS: HALOPERIDOL LACTATE 5 MG/ML 1 ML VIAL IM PRN ×2 (09:03→20:55)
--- NOTE | 2021-12-14 11:09 | P.PN ---
Subjective Progress Note Date: 12/14/21 Principal diagnosis: IMPRESSIONS: Schizoaffective disorder, bipolar type Nicotine dependence Patient was seen earlier sitting in with few other patients and was cooperative and asked to come out for an interview Patient however has significant loose associations flight of ideas and circumstantiality and tangentiality Patient comes across as projective paranoid with inappropriate laughter Continues to be tangential/circumstantial at times. He made some bizarre comments He is responding to internal stimuli today. Patient was unable to concentrate or any questions about any auditory visual hallucinations but seems to be responding to them Insight and his problem is poor Mental Status Exam: General Appearance: Patient appears to be tall, disheveled, stated age is lethargic today, and cooperative. Behavior: Disorganized thought processes loud talk and appears to be preoccupied Speech: Pressured with circumstantiality and tangentiality and loose associations Mood/Affect: Euphoric Suicidality/Homicidality: denies Perceptions: Appears to be experiencing auditory and visual hallucinations Though content/process: tangential/circumstantial. . Rambling. Memory and concentration: Unable to assess Judgment and insight: Chronically poor, IMPRESSIONS: Schizoaffective disorder, bipolar type Nicotine dependence Plan: -Patient continues to meet criteria for inpatient psychiatric admission for symptom stabilization and safety. Patient has not signed adult voluntary form and medication consent and was placed in patient's chart. -Medications: Depakene syrup 500 mg twice a day for mood stabilization. Haldol liquid 5 mg bid for psychosis. Trazodone 150 mg daily at bedtime for sleep. Haldol IM as back up if patient refuses po. given Haldol D 100 mg IM on 12/11 and will be due for a second 100 mg IM dose today. Would recommend that patient receive 200 mg IM Haldol Dec [id number] upon discharge. -When necessary Ativan and Haldol for agitation/aggression. -NRT - nicotine patch -SW on board for discharge planning. Encouraged the patient to participate in milieu. Patient is court ordered since 12/05. Patrice Alexis M.D. 12/14/2021 Objective - Vital Signs Vital signs: Vital Signs Temp 98.9 F 12/14/21 06:59 Pulse 73 12/14/21 06:59 Resp 18 12/13/21 07:15 BP 106/55 12/14/21 06:59 Pulse Ox 96 12/14/21 06:59 FiO2 - Labs CBC & Chem 7: 12/11/21 07:15
[2021-12-14] MEDS: LORazepam 2 MG/ML INJ IM PRN (20:55)
[2021-12-14] MEDS: BENZTROPINE MESYLATE 1 MG TAB PO PRN (20:56)
[2021-12-14] MEDS: traZODone HCL 50 MG TAB PO SCH (20:56)
[2021-12-15] MEDS: ACETAMINOPHEN TAB 325 MG TAB PO PRN (05:53)
[2021-12-15] MEDS: FOLIC ACID 1 MG TAB PO SCH (09:14)
[2021-12-15] MEDS: GABAPENTIN 300 MG CAP PO SCH ×3 (09:14→22:03)
[2021-12-15] MEDS: BENZTROPINE MESYLATE 1 MG TAB PO PRN ×2 (09:15→22:03)
[2021-12-15] MEDS: THIAMINE 100 MG TAB PO SCH (09:15)
[2021-12-15] MEDS: HALOPERIDOL LACTATE 5 MG/ML 1 ML VIAL IM PRN ×2 (09:15→22:10)
[2021-12-15] MEDS: HALOPERIDOL ORAL SOLN 10 MG/5 ML CUP PO SCH ×2 (09:15→22:03)
[2021-12-15] MEDS: VALPROIC ACID ORAL SOLN 250 MG/5 ML CUP PO SCH ×2 (09:15→22:03)
--- NOTE | 2021-12-15 12:37 | P.PN ---
Subjective Progress Note Date: 12/15/21 Principal diagnosis: IMPRESSIONS: Schizoaffective disorder, bipolar type Nicotine dependence Patient was walking in the hallway talking to himself When approached patient Running away and kept Laughing He stated that 'just write down this 'and made some jibbering noises and walked away again Patient has significant loose associations flight of ideas and circumstantiality and tangentiality Patient comes across as projective paranoid with inappropriate laughter Continues to be tangential/circumstantial at times. He made some bizarre comments He is responding to internal stimuli Insight and his problem is poor Mental Status Exam: General Appearance: Patient appears to be tall, disheveled, stated age Behavior: Disorganized thought processes loud talk and appears to be preoccupied Speech: Pressured with circumstantiality and tangentiality and loose associati ons Mood/Affect: Euphoric Suicidality/Homicidality: Unable to assess but patient does exhibit any self abusive behavior Perceptions: Appears to be experiencing auditory and visual hallucinations Though content/process: tangential/circumstantial. . Rambling. Memory and concentration: Unable to assess Judgment and insight: Chronically poor, IMPRESSIONS: Schizoaffective disorder, bipolar type Nicotine dependence Plan: -Patient continues to meet criteria for inpatient psychiatric admission for symptom stabilization and safety. Patient has not signed adult voluntary form and medication consent and was placed in patient's chart. -Medications: Depakene syrup 500 mg twice a day for mood stabilization. Haldol liquid 5 mg bid for psychosis. Trazodone 150 mg daily at bedtime for sleep. Haldol IM as back up if patient refuses po. given Haldol D 100 mg IM on 12/11 and will be due for a second 100 mg IM dose today. Would recommend that patient receive 200 mg IM Haldol Dec [id number] upon discha rge. -When necessary Ativan and Haldol for agitation/aggression. -NRT - nicotine patch -SW on board for discharge planning. Encouraged the patient to participate in milieu. Patient is court ordered since 12/05. Patrice Alexis M.D. 12/15/2021 Objective - Vital Signs Vital signs: Vital Signs Temp 97.9 F 12/15/21 06:48 Pulse 76 12/15/21 06:48 Resp 18 12/15/21 06:48 BP 111/58 12/15/21 06:48 Pulse Ox 99 07/10/22 06:48 FiO2 Intake & Output 12/14/21 12/15/21 12/15/21 18:59 06:59 18:59 Weight 77 kg - Labs CBC & Chem 7: 12/11/21 07:15
[2021-12-15] MEDS: traZODone HCL 50 MG TAB PO SCH (22:02)
[2021-12-15] MEDS: haloperidoL 5 MG TAB PO PRN (22:17)
[2021-12-16] MEDS: FOLIC ACID 1 MG TAB PO SCH (08:54)
[2021-12-16] MEDS: haloperidoL 5 MG TAB PO PRN ×2 (08:54→20:10)
[2021-12-16] MEDS: GABAPENTIN 300 MG CAP PO SCH ×3 (08:54→20:43)
[2021-12-16] MEDS: THIAMINE 100 MG TAB PO SCH (08:54)
[2021-12-16] MEDS: VALPROIC ACID ORAL SOLN 250 MG/5 ML CUP PO SCH ×2 (08:56→20:43)
[2021-12-16] MEDS: HALOPERIDOL ORAL SOLN 10 MG/5 ML CUP PO SCH ×2 (08:56→20:43)
[2021-12-16] MEDS: ACETAMINOPHEN TAB 325 MG TAB PO PRN ×2 (15:17→20:10)
[2021-12-16] MEDS ORDERED: LORazepam 1 MG/0.5 ML VIAL IM PRN (18:45)
--- NOTE | 2021-12-16 19:00 | PN ---
PROGRESS NOTE DATE OF SERVICE: 12/16/2021 CHIEF COMPLAINT: The patient was admitted for delusions and hallucination. INTERVAL HISTORY: The patient continues to be significantly symptomatic with disorganized thoughts, behaviors and psychotic symptoms. He was out on the unit yesterday. He did attend some groups. He could show some contained behavior and thoughts for limited periods of time, though also he will show some disorganized thoughts and functioning. He was noted to sleep 5 hours last night. Today he has been up and overall doing the same. He attended 3 groups today. In general he is noted to be bright in his affect. He tends to be disorganized and garbled in his speech, and communication for the most part is not very productive. When I talked to the patient, it was difficult to be clear on much of what he was talking about. He would respond to questions, though it was difficult to follow his train of thought. He did not appear to voice any clear complaints or concerns. I was not able to get any information for the patient in regard to medication tolerance. MENTAL STATUS EXAM: The patient was quite restless. He would respond to questions, though mostly he would veer off and be quite rambling in his responses. It was difficult to follow his train of thought. His affect was intense, his mood elevated. It was difficult to assess whether he was distressed or not. He clearly was showing response to internal stimuli with a lot of self-talk, both in the session as well as when he was observed outside of the session. It was difficult to assess for any thoughts of harm. He appeared to be oriented to circumstances and surroundings. ASSESSMENT: I will continue the current diagnosis and treatment plan. I will continue psychotropic medications the same. The patient continues to show significant psychotic symptoms. I briefly reviewed some issues of his medications though kept the discussion limited, as he was not able to engage much in the conversation. We will focus on stabilization and discharge planning. MMODL / IJN: [id number] /
[2021-12-16] MEDS: traZODone HCL 50 MG TAB PO SCH (20:10)
[2021-12-17] MEDS: HALOPERIDOL ORAL SOLN 10 MG/5 ML CUP PO SCH (08:49)
[2021-12-17] MEDS: VALPROIC ACID ORAL SOLN 250 MG/5 ML CUP PO SCH (08:50)
[2021-12-17] MEDS: FOLIC ACID 1 MG TAB PO SCH (08:50)
[2021-12-17] MEDS: GABAPENTIN 300 MG CAP PO SCH ×3 (08:50→22:04)
[2021-12-17] MEDS: THIAMINE 100 MG TAB PO SCH (08:50)
[2021-12-17] MEDS: BENZTROPINE MESYLATE 1 MG TAB PO PRN (08:53)
[2021-12-17] MEDS: ACETAMINOPHEN TAB 325 MG TAB PO PRN (10:29)
--- NOTE | 2021-12-17 11:34 | P.PN ---
Progress Note - Text Progress Note Date: 12/17/21 Interval History: Patient was seen walking the hallways today and was approached by poem writer. Shakila webster was fairly focused on asking poem writer about obtaining "Excedrin" for his headaches. [employer] Manager attempted to offer other medications including Tylenol and ibuprofen however patient appeared to reject these. He was talking to himself and wandering the hallways and appears to be less impulsive today. She did not want to answer other questions and walked away from poem writer. Patient received Haldol D IM 100 mg IM on 12/11 and also 100 mg IM on 12/13. Mental Status Exam: General Appearance: Patient appears to be tall, wandering the hallways, less irritable today. Patient appears to have improving hygiene and grooming Behavior: Patient is wandering the hallways today, talking to himself. Speech: Patient's speech is improving, more fluent today. Mood/Affect: patient claims that his mood is "ok", affect is congruent and constricted. Suicidality/Homicidality: Unable to assess Perceptions: Unable to assess Though content/process: tangential/circumstantial. Bizarre comments. improving midlly. Rambling. Memory and concentration: Unable to assess Judgment and insight: Chronically poor IMPRESSIONS: Schizoaffective disorder, bipolar type Nicotine dependence Plan: -Patient continues to meet criteria for inpatient psychiatric admission for symptom stabilization and safety. Patient has not signed adult voluntary form and medication consent and was placed in patient's chart. -Medications: Discontinue Depakene as patient is not taking this. Discontinue Haldol liquid as patient received Haldol D1 100 mg IM on 12/11 and also 100 mg IM on 12/13. Will be due for next Haldol D injection on 12/27. Trazodone 150 mg daily at bedtime for sleep. Patient is not willing to take PO meds therefore we have exhausted therapeutic benefit and can continue patient only LAST once he is discharged. He is not a candidate for clozaril. -When necessary Ativan and Haldol for agitation/aggression. -NRT - nicotine patch -SW on board for discharge planning. Encouraged the patient to participate in milieu. Patient is court ordered since 12/05. Will aim for discharge back home tomorrow. SW to contact [facility] team to coordinate d/c tomorrow.
[2021-12-17] MEDS: traZODone HCL 50 MG TAB PO SCH (22:05)
[2021-12-18] MEDS: FOLIC ACID 1 MG TAB PO SCH (09:17)
[2021-12-18] MEDS: GABAPENTIN 300 MG CAP PO SCH ×3 (09:17→20:58)
[2021-12-18] MEDS: THIAMINE 100 MG TAB PO SCH (09:17)
--- NOTE | 2021-12-18 13:22 | P.PN ---
Progress Note - Text Progress Note Date: 12/18/21 Interval History: Patient was seen walking the hallways today and was approached by senior writer. Shakila webster appeared to be more interactive today with senior writer and attempted to answer more questions appropriately. He continues to ramble at times during conversation and was tangential. He needed to be redirected several times however was directable. He claims that he is doing "fine" and denying any depression or anxiety today. He spoke about discharge and how he is going to get back to his apartment. Patient received Haldol D IM 100 mg IM on 12/11 and also 100 mg IM on 12/13. He is denying any auditory or visual hallucinations denying any suicidal or homicidal ideations intent or plan. Mental Status Exam: General Appearance: Patient appears to be tall, wandering the hallways, less irritable today. Patient appears to have improving hygiene and grooming Behavior: Patient is wandering the hallways today, talking to himself. Speech: Patient's speech is improving, more fluent today. Mood/Affect: patient claims that his mood is "fine", affect is congruent and constricted. Suicidality/Homicidality: Denies Perceptions: Denies Though content/process: tangential/circumstantial. Bizarre comments. improving midlly. Rambling. Memory and concentration: Unable to assess Judgment and insight: Chronically poor IMPRESSIONS: Schizoaffective disorder, bipolar type Nicotine dependence Plan: -Patient continues to meet criteria for inpatient psychiatric admission for symptom stabilization and safety. Patient has not signed adult voluntary form and medication consent and was placed in patient's chart. -Medications: He received Haldol D 100 mg IM on 12/11 and also 100 mg IM on 12/13. Will be due for next Haldol D 200 mg IM injection on 12/27. increase Trazodone 200 mg daily at bedtime for sleep. Patient is not willing to take PO meds therefore we have exhausted therapeutic benefit and can continue patient only LAST once he is discharged. He is not a candidate for clozaril. -When necessary Ativan and Haldol for agitation/aggression. -NRT - nicotine patch -SW on board for discharge planning. Encouraged the patient to participate in milieu. Patient is court ordered since 12/05. Will aim for discharge back home tomorrow. SW contacted [place] [facility] team and also patient's guardian who claimed that patient is severely mentally ill at his baseline and they are okay with discharge however will need to arrange a ride back to his apartment.
[2021-12-18] MEDS: ACETAMINOPHEN TAB 325 MG TAB PO PRN ×2 (16:32→22:39)
[2021-12-18] MEDS: haloperidoL 5 MG TAB PO PRN (17:15)
[2021-12-18] MEDS: BENZTROPINE MESYLATE 1 MG TAB PO PRN (17:15)
[2021-12-18] MEDS ORDERED: traZODone HCL 100 MG TAB PO SCH (21:00)
[2021-12-19 06:30] VITALS: BP 118/62; PULSE 76; TEMP 97.7
[2021-12-19] MEDS: GABAPENTIN 300 MG CAP PO SCH ×2 (09:51→15:38)
[2021-12-19] MEDS: FOLIC ACID 1 MG TAB PO SCH (09:51)
[2021-12-19] MEDS: THIAMINE 100 MG TAB PO SCH (09:51)
--- NOTE | 2021-12-19 10:16 | P.PN ---
Progress Note - Text Progress Note Date: 12/19/21 Interval History: Patient was seen walking the hallways today and was approached by advertising writer. Shakila webster appeared to be more interactive today with advertising writer and attempted to answer more questions appropriately. He continues to ramble at times during conversation and was tangential. He needed to be redirected several times however was directable. He claims that he is doing "fine" and denying any depression or anxiety today. He spoke about discharge and how he is going to get back to his apartment. Patient received Haldol D IM 100 mg IM on 12/11 and also 100 mg IM on 12/13. He is denying any auditory or visual hallucinations denying any suicidal or homicidal ideations intent or plan. Mental Status Exam: General Appearance: Patient appears to be tall, wandering the hallways. Patient appears to have improving hygiene and grooming Behavior: Patient is wandering the hallways today, talking to himself, improving mildly Speech: Patient's speech is improving, more fluent today Mood/Affect: patient claims that his mood is "good doc", affect is congruent and constricted. Suicidality/Homicidality: Denies Perceptions: Denies Though content/process: tangential/circumstantial. Bizarre. improving midlly. Rambling. Memory and concentration: Unable to assess Judgment and insight: Chronically poor, improving mildly IMPRESSIONS: Schizoaffective disorder, bipolar type Nicotine dependence Plan: -Patient continues to meet criteria for inpatient psychiatric admission for symptom stabilization and safety. Patient has not signed adult voluntary form and medication consent and was placed in patient's chart. -Medications: He received Haldol D 100 mg IM on 12/11 and also 100 mg IM on 12/13. Will be due for next Haldol D 200 mg IM injection on 12/27. Trazodone 200 mg daily at bedtime for sleep. Patient is not willing to take PO meds therefore we have exhausted therapeutic benefit and can continue patient only LAST once he is discharged. -When necessary Ativan and Haldol for agitation/aggression. -NRT - nicotine patch -SW on board for discharge planning. Encouraged the patient to participate in milieu. Patient is court ordered since 12/05. Will aim for discharge back home as soon as arrangements and transportation are in place. SW contacted [facility] team and also patient's guardian who claimed that patient is severely mentally ill at his baseline and they are okay with discharge however will need to arrange a ride back to his apartment.
--- NOTE | 2021-12-19 14:03 | P.DS ---
Providers Date of admission: 11/27/21 14:49 Expected date of discharge: 12/19/21 Attending physician: Pedro Oliveros MD Consults: 11/27/21 01:30 Consult Physician Routine Consulting Provider: Yan Arguello Consult Reason/Comments: H&P and medical Do you want consulting provider notified?: Yes Primary care physician: [facility] None - Discharge Diagnosis(es) (1) Schizoaffective disorder, bipolar type Current Visit: Yes Status: Acute Priority: High (2) Nicotine dependence Current Visit: Yes Status: Acute Priority: Low Hospital Course: Admission HPI: Admission note was completed by casualty underwriter "Patient is a 61 yo male, lives [place], sister is pat. Patient presented to the hospital on petition and certificate. Patient was admitted involunatrily. He was a transfer from [facility]. He apparently hasa history of chronic and perisstent mental illness. He was seen today and agreeable to speak with casualty underwriter. He was illogical had loose associations. He was also tangential and delusional; about his family and beleives that "they all want me locked up. He spoke about the problems of his sister as pat. He appears to be ditressed today. He has poor insight and judgment. He claims that he wants back his gracielahip. He admitts to med non compliance for quite some time. denies any depression or anxiety. He was minimizing his symtpoms. Petition states that. Patient denies any suicidal or homicidal ideations intent or plan. At this time patient denies any auditory or visual hallucinations. Patient denies any flight of ideas r acing thoughts and increased in goal directed behavior. Patient admits to using cigarettes only no other recreational drugs." Hospital course: Upon admission to the unit patient was admitted involuntarily on a petition and certificate and a second certificate was completed and faxed with the courts]. Patient ended up proceeding with the court hearing and received a mental health treatment order. Patient got along well with other patients on the unit and followed unit protocol. Patient was compliant with the medications and denied any side effects throughout hospital course. Patient was started on haloperidol and the by mouth dose was increased. Patient was transitioned onto Haldol D and given 100 mg IM on 12/11 and also 100 mg IM on 12/13 for total 200 mg and will be due for his next 200 mg IM dose on 12/27. Patient was also started on trazodone 20 mg daily at bedtime for sleep. Patient refused most of his oral medications including Depakote and also the trial of clozapine therefore needed to be switched only onto injectables. Patient attended minimal groups. Patient was also seen by medical team for history and physical exam. Throughout the course of the hospitalization patient gradually improved with regards to [mood, psychosis, sleep and returned back to their baseline level of functioning. Patient does appear to have a chronically poor baseline of psychotic symptoms including talking to himself and rambling/illogical thoughts n however this improved significantly during the course of his hospitalization. On the day of discharge patient denied any suicidal or homicidal ideations intent or plan denied any auditory or visual hallucinations. The patient denied any access to guns or weapons. Patient denied any paranoia and did not endorse any delusions. Patient does not have a significant history of substance abuse and was counseled on abstaining from all substances including alcohol and marijuana. Patient was also counseled on the medications and need for regular compliance and was encouraged to follow-up with their outpatient appointment for mental health and also for primary care. Prior to discharge a family meeting will be arranged by mental health social worker to answer any questions and ensure safety upon discharge. patch worker contacted patient's guardian and also [facility] team to coordinate for patient's discharge today as he will be followed closely in [facility] through [facility]. Mental status exam: General Appearance: Patient appears to be tall, thin, unshaven, stated age is alert, pleasant, and attempts to be cooperative. Patient is in no acute distress and has improved hygiene and grooming Behavior: Patient is calmly seated without any agitated behavior. Talks to himself and rambling. Speech: Patient's speech is fluent and nonpressured. Rambles at times. Mood/Affect: Patient reports their mood is "ok", affect is congruent Suicidality/Homicidality: Patient denies having any suicidal or homicidal ideation intent or plan. Perceptions: Patient denies any auditory or visual hallucinations. Though content/process: There is no evidence of any delusional thought content. Patient is illogical at times however this has improved. No paranoia. Memory and concentration: AOX3, grossly intact for the purposes of this session. Can spell "WORLD" backwards correctly. Judgment and insight: chronically poor, however has improved with guarded prognosis Impression: schizoaffective disorder Nicotine dependence Plan: -Continue with discharge today as patient has improved and stabilized psychiatrically and is not currently an imminent threat to himself and/or others. Patient will remain at chronically elevated risk for harm to self and/or others due to his impulsivity and chronically poor insight and judgment. -Continue medications: Trazodone by mouth 200 mg daily at bedtime for sleep, Haldol D 200 mg IM every 2 weeks, last dose given on 12/13 and will be due for next dose on 12/27 -Patient was counseled on the need for medication compliance and appropriate follow-up at mental health and also primary care for medical issues. Patient verbalized understanding and agreed. -Social work to arrange for and conduct family meeting to ensure safety upon discharge and answer any questions/concerns. Social work also to arrange for patients follow up appointments with [facility] for psychiatric care along with follow up with primary care provider. Patient will be followed by [facility] team upon discharge. -Patient counseled on abstaining from recreational drugs and marijuana and alcohol. Was informed/educated on the adverse effects on their physical and mental health. Patient verbally agreed and understood. -Patient was instructed to return to the hospital or seek immediate medical care if their psychiatric or medical symptoms do worsen or reoccur. Allergies Allergy/AdvReac Type Severity Reaction Status Date / Time fluphenazine [From Prolixin] Allergy Unknown Verified 11/27/21 01:24 levothyroxine Allergy Unknown Verified 11/27/21 01:24 risperidone [From Risperdal] Allergy Unknown Verified 11/27/21 01:24 sertraline [From Zoloft] Allergy Unknown Verified 11/27/21 01:24 Laboratory Results WBC 3.8 k/uL (3.8-10.6) 12/11/21 07:15 RBC 4.93 m/uL (4.30-5.90) 12/11/21 07:15 Hgb 15.1 gm/dL (13.0-17.5) 12/11/21 07:15 Hct 45.4 % (39.0-53.0) 12/11/21 07:15 MCV 92.1 fL (80.0-100.0) 12/11/21 07:15 MCH 30.7 pg (25.0-35.0) 12/11/21 07:15 MCHC 33.3 g/dL (31.0-37.0) 12/11/21 07:15 RDW 12.1 % (11.5-15.5) 12/11/21 07:15 Plt Count 209 k/uL (150-450) 12/11/21 07:15 MPV 7.2 12/11/21 07:15 Neutrophils % 54 % 12/11/21 07:15 Lymphocytes % 29 % 12/11/21 07:15 Monocytes % 7 % 12/11/21 07:15 Eosinophils % 8 % 12/11/21 07:15 Basophils % 1 % 12/11/21 07:15 Neutrophils # 2.0 k/uL (1.3-7.7) 12/11/21 07:15 Lymphocytes # 1.1 k/uL (1.0-4.8) 12/11/21 07:15 Monocytes # 0.3 k/uL (0-1.0) 12/11/21 07:15 Eosinophils # 0.3 k/uL (0-0.7) 12/11/21 07:15 Basophils # 0.0 k/uL (0-0.2) 12/11/21 07:15 Vital Signs Temp 97.7 F 12/19/21 06:05 Pulse 76 12/19/21 06:05 Resp 18 12/19/21 06:05 BP 118/62 12/19/21 06:05 Pulse Ox 100 12/17/21 06:45 FiO2 Intake & Output 12/18/21 12/19/21 12/19/21 18:59 06:59 18:59 Weight 77 kg Patient Condition at Discharge: Stable Plan - Discharge Summary Discharge Rx Participant: No New Discharge Prescriptions: New traZODone HCL [Desyrel] 200 mg PO HS 30 Days tab Folic Acid 1 mg PO DAILY 30 Days tab Benztropine Mesylate [Cogentin] 1 mg PO BID PRN 14 Days tab PRN Reason: muscle spasms Haloperidol Decanoate [Haldol D] 200 mg IM Q14D #1 each Thiamine [Vitamin B-1] 100 mg PO DAILY 30 Days tab Continue Gabapentin 300 mg PO TID Discontinued traZODone HCL [Desyrel] 50 mg PO HS Divalproex Sodium 500 mg PO QAM Acetaminophen Tab [Tylenol] 650 mg PO Q4HR PRN PRN Reason: Pain haloperidoL [Haloperidol] 5 mg PO BID Divalproex Sodium 1,000 mg PO HS Benztropine Mesylate [Cogentin] 1 mg PO TID Discharge Medication List Gabapentin 300 mg PO TID 11/27/21 [History] Benztropine Mesylate [Cogentin] 1 mg PO BID PRN 14 Days tab 12/19/21 [Rx] Folic Acid 1 mg PO DAILY 30 Days tab 12/19/21 [Rx] Haloperidol Decanoate [Haldol D] 200 mg IM Q14D #1 each 12/19/21 [Rx] Thiamine [Vitamin B-1] 100 mg PO DAILY 30 Days tab 12/19/21 [Rx] traZODone HCL [Desyrel] 200 mg PO HS 30 Days tab 12/19/21 [Rx] Follow up Appointment(s)/Referral(s): [facility] [Other] - 12/19/21 12:00 pm (ACT will see pt in home between 10 and 2pm. ) [facility] [Other] - 1 Week Patient Instructions/Handouts: How to Stop Smoking (DC), Schizoaffective Disorder (DC) Activity/Diet/Wound Care/Special Instructions: Avoid the use of street drugs and alcohol. Take all prescriptions as prescribed. When you are in need of refills on your medications, please contact your medical provider and/or outpatient psychiatrist to have this done. Please go to scheduled outpatient appointment for aftercare treatment. If symptoms return or become worse, call the crisis line at and/or go to the nearest emergency room for evaluation. Discharge Disposition: HOME SELF-CARE
[2021-12-19] MEDS: ACETAMINOPHEN TAB 325 MG TAB PO PRN (15:37)
== END 2021-12-19 15:47 | disposition home or self-care (01) | DRG 885 ==
LOC: 3MHU 14:49
PROVIDERS: ADMIT Psychiatry & Neurology Psychiatry; ATTEND Psychiatry & Neurology Psychiatry
DX: F25.0 Schizoaffective disorder, bipolar type (principal); F17.210 Nicotine dependence, cigarettes, uncomplicated; R51.9 Headache, unspecified; R53.83 Other fatigue; Z88.8 Allergy status to other drugs, medicaments and biological substances; Z91.14 Patient's other noncompliance with medication regimen
CPT/HCPCS: 85025